=== PATIENT | female | born 1955 | race Caucasian/White ===

== ENCOUNTER 2022-04-11 06:32 | Emergency (ER) | payer BC, OTHER ==
[2022-04-11 07:42] VITALS: BMI 25.2
[2022-04-11 09:18] LABS: URINE APPEARANCE CLEAR; URINE BILIRUBIN NEGATIVE (NEGATIVE); URINE COLOR YELLOW; URINE GLUCOSE (UA) NEGATIVE (NEGATIVE); URINE KETONE NEGATIVE (NEGATIVE); URINE LEUK ESTERASE NEGATIVE (NEGATIVE); URINE NITRITE NEGATIVE (NEGATIVE); URINE PROTEIN NEGATIVE (NEGATIVE); URINE UROBILINOGEN 0.2 mg/dL (0.2-1.0)
[2022-04-11 09:24] LABS: INR 0.88 (0.83-1.09); PROTHROMBIN TIME (PATIENT) 10.1 SEC (9.7-13.0)
[2022-04-11 09:27] LABS: ACTIVATED PTT 28.2 SECONDS (25.2-36.5)
[2022-04-11 09:28] LABS: ALBUMIN 3.6 g/dl (3.4-5.0); CALCIUM 9.1 mg/dL (8.5-10.1)
[2022-04-11 09:29] LABS: BASO % 0.6 % (0-2.0); BLOOD UREA NITROGEN 21.2 mg/dL (7-18); EOS % 1.1 % (0-4.5); HEMATOCRIT 44.2 % (32.4-45.2); HEMOGLOBIN 14.6 GM/dL (10.7-15.3); LYMPH % 15.6 % (8-40); MAGNESIUM 2.2 mg/dL (1.8-2.4); MCHC 33.1 g/dl (32.0-36.0); MEAN CELL VOLUME 93.7 fl (80-96); MEAN PLT VOLUME 8.6 fl (7.5-11.1); MONO % 3.4 % (3.8-10.2); NEUT % 79.3 % (42.8-82.8); PLATELET COUNT 279 10^3/uL (134-434); RBC 4.72 M/mm3 (3.60-5.2); RDW 14.1 % (11.6-15.6); WHITE BLOOD COUNT 7.5 K/mm3 (4.0-10.0)
[2022-04-11 09:31] LABS: CREATININE 0.7 mg/dL (0.55-1.3)
[2022-04-11 09:33] LABS: BILIRUBIN,TOTAL 0.3 mg/dL (0.2-1); TOT PROT 6.7 g/dl (6.4-8.2)
[2022-04-11 12:13] VITALS: BP 149/82; PULSE 60; RESP 18; TEMP 98.5
== END 2022-04-11 13:00 | disposition home or self-care (01) ==
LOC: JER 06:32
DX: R42 Dizziness and giddiness (principal)
CPT/HCPCS: 0241U-QW; 36415; 71046-TC-FY; 80053; 81003; 83735; 84484; 85025; 85610; 85730; 87086; 93005; 93010; 99285-25

== ENCOUNTER 2022-09-25 03:50 | Emergency (ER) | payer BC, OTHER ==
[2022-09-25 04:04] VITALS: BP 152/92; PULSE 85; RESP 18; TEMP 97.5; BMI 26.4
[2022-09-25] MEDS ORDERED: LIDOCAINE HCL 1%, 10 MG/ML (10ML VIAL) MDV ONE (04:26)
== END 2022-09-25 04:51 | disposition home or self-care (01) ==
LOC: JER 03:50
DX: S70.361A Insect bite (nonvenomous), right thigh, initial encounter (principal); W57.XXXA Bitten or stung by nonvenomous insect and other nonvenomous arthropods, initial encounter
CPT/HCPCS: 99283-25